=== PATIENT | male | born 1980 | race Caucasian/White ===

== ENCOUNTER 2023-05-12 11:53 | Outpatient (OUT) | payer OTHER, SELFPAY ==
[2023-05-12 12:36] LABS: Basophils Percent Auto 0.4 % (0.2-2.0); Eosinophils Absolute Auto 0.1 10^3/uL (0.0-0.7); Eosinophils Percent Auto 1.2 % (0.9-7.0); Hematocrit 42.6 % (42.0-54.0); Hemoglobin 14.5 g/dL (14.0-18.0); Immature Granulocytes Abs Auto 0.03 10^3/uL (0.00-0.03); Immature Granulocytes Pct Auto 0.4 % (0.0-0.5); Lymphocytes Absolute Auto 1.9 10^3/uL (1.2-3.8); Lymphocytes Percent Auto 25.7 % (20.5-60.0); Mean Corpuscular Hemoglobin 27.9 pg (25.9-34.0); Mean Corpuscular Volume 81.9 fL (80.0-94.0); Mean Platelet Volume 9.8 fL (9.5-13.5); Monocytes Absolute Auto 0.5 10^3/uL (0.3-0.8); Monocytes Percent Auto 6.1 % (1.7-12.0); Neutrophils Percent Auto 66.2 % (43.0-75.0); Platelet Count 259 10^3/uL (150-450); Red Cell Distribution Width 13.1 % (11.0-15.0); White Blood Count 7.6 10^3/uL (4.0-11.0)
[2023-05-12 13:03] LABS: Estimated Average Glucose 120 mg/dL; Glycohemoglobin A1C 5.8 % (4.5-6.2)
[2023-05-12 13:14] LABS: Alanine Aminotransferase 22 U/L (16-63); Albumin Globulin Ratio 1.3; Albumin Level 4.1 g/dL (3.4-5.0); Alkaline Phosphatase 72 U/L (46-116); Anion Gap 11.6; Aspartate Amino Transferase 10 U/L (15-37); Bilirubin Total 0.5 mg/dL (0.2-1.0); Calcium 8.7 mg/dL (8.5-10.1); Carbon Dioxide 26.2 mmol/L (21.0-32.0); Chloride 102 mmol/L (98-107); Chol HDL Ratio 5.5; Cholesterol 183 mg/dL (<=200); Estimated GFR (African America >60 (>=60); Estimated GFR (Non-African Ame >60 (>=60); Globulin 3.2 g/dL; Glucose 105 mg/dL (74-106); HDL Cholesterol 33 mg/dL (40-60); Potassium 3.8 mmol/L (3.5-5.1); Sodium 136 mmol/L (136-145); Thyroid Stimulating Hormone 1.827 uIU/mL (0.358-3.740); Total Protein 7.3 g/dL (6.4-8.2); Triglycerides 148 mg/dL (<=150); VLDL CHOLESTEROL 29.6 mg/dL
[2023-05-13 12:09] LABS: Insulin 9.4 uIU/mL (2.6-24.9)
== END 2023-05-12 11:54 | disposition home or self-care (01) ==
PROVIDERS: PCP Family Medicine; Visit Provider Family Medicine
DX: Z00.00 Encounter for general adult medical examination without abnormal findings (principal); E78.5 Hyperlipidemia, unspecified; R73.09 Other abnormal glucose
CPT/HCPCS: 36415; 80053; 80061; 83036; 83525; 84436; 84443; 84481; 85025

== ENCOUNTER 2023-09-14 13:46 | Outpatient (REF) | payer OTHER, SELFPAY ==
[2023-09-14 14:15] LABS: SARS-CoV-2 Ag POSITIVE (NEGATIVE)
[2023-09-14 14:16] LABS: Influenza Virus A Antigen Negative; Influenza Virus B Antigen Negative; Internal Control Within Normal Limits; Respiratory Syncytial Virus Not Detected (NOT DETECTE)
== END 2023-09-14 13:47 | disposition home or self-care (01) ==
LOC: LAB 13:46
PROVIDERS: PCP Family Medicine; Visit Provider Family Medicine
DX: J21.9 Acute bronchiolitis, unspecified (principal)
CPT/HCPCS: 87420; 87798; 87804; 87811

== ENCOUNTER 2025-06-21 17:08 | Outpatient (OUT) | payer OTHER, SELFPAY ==
[2025-06-21 08:04] LABS: Hematocrit 43.8 % (42.0-54.0); Hemoglobin 15.0 g/dL (14.0-18.0); Immature Granulocytes Abs Auto 0.02 10^3/uL (0.00-0.03); Immature Granulocytes Pct Auto 0.3 % (0.0-0.5); Lymphocytes Absolute Auto 2.0 10^3/uL (1.2-3.8); Mean Corpuscular HGB Conc 34.2 g/dL (29.9-35.2); Mean Corpuscular Hemoglobin 28.4 pg (25.9-34.0); Mean Corpuscular Volume 82.8 fL (80.0-94.0); Platelet Count 286 10^3/uL (150-450); Red Blood Count 5.29 10^6/uL (4.70-6.10); White Blood Count 7.3 10^3/uL (4.0-11.0)
[2025-06-21 10:25] LABS: Alanine Aminotransferase 28 U/L (16-63); Albumin Globulin Ratio 1.1; Albumin Level 3.9 g/dL (3.4-5.0); Alkaline Phosphatase 71 U/L (46-116); Anion Gap 14.3; Aspartate Amino Transferase 14 U/L (15-37); Blood Urea Nitrogen 17.0 mg/dL (7.0-18.0); Calcium 8.8 mg/dL (8.5-10.1); Carbon Dioxide 26.6 mmol/L (21.0-32.0); Chloride 104 mmol/L (98-107); Cholesterol 173 mg/dL (<=200); Estimated GFR (African America >60 (>=60 mL/min/1.73m^2); Estimated GFR (Non-African Ame >60 (>=60 mL/min/1.73m^2); Free T3 3.53 pg/mL (2.18-3.98); Globulin 3.5 g/dL; Glucose 123 mg/dL (74-106); HDL Cholesterol 30 mg/dL (40-60); Potassium 3.9 mmol/L (3.5-5.1); Sodium 141 mmol/L (136-145); Thyroid Stimulating Hormone 1.604 uIU/mL (0.358-3.740); Total Protein 7.4 g/dL (6.4-8.2); Triglycerides 100 mg/dL (<=150); VLDL CHOLESTEROL 20.0 mg/dL
--- OUTSIDE RECORDS SUMMARY | 2025-06-22 09:01 | XMS_ITS | Clinical Summary ---
Author Organization [facility] Address [address] [facility] [place] [address] Care Team Providers Care Quality Audit Representative Name Role Phone Unavailable Primary Care Provider Unavailabl e Social History Tobacco Use Types Packs/Day Years Used Date Smoking Tobacco: Never Assessed Sex and Gender Information Value Date Recorded Sex Assigned at Not on file Legal Sex Male 7:07 PM EDT Gender Identity Not on file Sexual Orientation Not on file Plan of Treatment Not on file [place] [facility] [place] Address: [facility] [id number] [place] [address]
--- OUTSIDE RECORDS SUMMARY | 2025-06-22 09:01 | XMS_ITS | Clinical Summary ---
Author Organization [employer] [facility] tem Address [facility] [id number] [address] [place] [address] Care Team Providers Care Student Accounts Coordinator Name Role Phone Berto Crowell MD Primary Care Provider +-2 Social History Tobacco Use Types Packs/Day Years [...] Not on file Insurance [employer] Care Teams Student Accounts Coordinator Relationship Specialty Start Date End Date Berto Crowell MD PCP - General 04/11/18
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
== END 2025-06-21 17:09 | disposition home or self-care (01) ==
LOC: LAB 06-22 09:00
PROVIDERS: PCP Family Medicine; Visit Provider Family Medicine
DX: K29.70 Gastritis, unspecified, without bleeding (principal); R10.11 Right upper quadrant pain; E78.5 Hyperlipidemia, unspecified; R73.09 Other abnormal glucose; Z12.12 Encounter for screening for malignant neoplasm of rectum; E03.9 Hypothyroidism, unspecified; I10 Essential (primary) hypertension; Z12.5 Encounter for screening for malignant neoplasm of prostate; R53.83 Other fatigue
CPT/HCPCS: 36415; 80053; 80061; 83036; 83525; 84436; 84443; 84481; 85025; G0103

== ENCOUNTER 2025-06-22 06:41 | Outpatient (OUT) | payer OTHER, SELFPAY ==
--- OUTSIDE RECORDS SUMMARY | 2025-06-22 06:43 | XMS_ITS | Clinical Summary ---
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
--- OUTSIDE RECORDS SUMMARY | 2025-06-22 06:43 | XMS_ITS | Clinical Summary ---
Author Organization [facility] tem Address [id number] [address] [place] [address] Care Team Providers Care [employer] H[employer] Consultant Name Role Phone Berto Crowell MD Primary Care Provider +-3 Social History Tobacco Use Types Packs/Day Years Used Date Smoking Tobacco: Never Assessed Childcare Answer Date Recorded Childcare Unknown 03/15/2019 Employment Answer Date Recorded Employment Unknown 03/15/2019 Purpose - Life Answer Date Recorded Purpose and direction in life Unknown Sex and Gender Information Value Date Recorded Sex Assigned at Not on file Legal Sex Male 11:50 AM EDT Gender Identity Not on file Sexual Orientation Not on file Plan of Treatment Health Maintenance Due Date Last Done Comments Depression Screening 1993 Tobacco Screening 1993 Adult BMI Screening 1999 DTaP,Tdap and Td Vaccines (1 - Tdap) 2000 Influenza Vaccine 06/04/2025 Medical Devices Not on file Insurance [employer] Care Teams [employer] Hcm Consultant Relationship Specialty Start Date End Date Berto Crowell MD PCP - General 04/11/18
--- OUTSIDE RECORDS SUMMARY | 2025-06-22 06:43 | XMS_ITS | CCD ---
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 Normal 13.0-17.0 [facility] Comment on above: Order Comment: No: D o not add to previous draw Performed By: #### 8 [id number] #### [facility] [address] [place] [address], [facility] MCH (RBC) [Entitic mass] 28.0 pg Normal 27.0-33.0 [facility] Comment on above: Order Comment: No: D o not add to previous draw Performed By: #### 8 [id number] #### [facility] [address] [place] [address], [facility] MCHC (RBC) [Mass/Vol] 33.2 g/dL Normal 32.0-35.0 [facility] Comment on above: Order Comment: No: D o not add to previous draw Performed By: #### 8 [id number] #### [facility] [address] [place] [id number], [facility] MCV (RBC) [Entitic vol] 84.5 fL Normal 82.0-98.0 [facility] Comment on above: Order Comment: No: D o not add to previous draw Performed By: #### 8 [id number] #### [facility] [address] [place] [address], [facility] Nucleated RBC/100 WBC (Bld) [Ratio] 0 % Normal 0-0 [facility] Comment on above: Order Comment: No: D o not add to previous draw Performed By: #### 8 [id number] #### [facility] [address] [place] [address], [place] PLAT CNT 242 10*3/uL Normal 150-400 [facility] Comment on above: Order Comment: No: D o not add to previous draw Performed By: #### 8 5499 #### [facility] [address] [place] [address], [facility] RBC (Bld) [#/Vol] 5.21 10*6/uL Normal 4.20-5.[address] [facility] Comment on above: Order Comment: No: D o not add to previous draw Performed By: #### 8 [id number] #### [facility] [address] [place] [address], [facility] WBC (Bld) [#/Vol] 14.28 10*3/uL High 4.00-10.60 [facility] Comment on above: Order Comment: No: D o not add to previous draw Performed By: #### 8 5499 #### [facility] [address] [facility] [place] [address], [facility] MAGNESIUM BLOODon 08-01-2021 Magnesium [Mass/Vol] 2.2 mg/dL Normal 1.9-2.7 [facility] Comment on above: Order Comment: No: D o not add to previous draw Performed By: #### 1 0070, 27257 #### [facility] [address] [facility] [place] [address], [facility] Operative Reporton 1 Operative Report MR#: [id number] I [facility] Pt. Name: Marilyn Mezad Room #: 3CD [id number] Discharge Date: Birthdate: 1980 OPERATIVE REPORT DATE OF SURGERY: 07/31/2021 SURGEON: Lizet Strickland MD PREOPERATIVE DIAGNOSES: 1. History of multiple partial small bowel obstruction. 2. Large incisional hernia. POSTOPERATIVE DIAGNOSIS: Multiple abdominal wall hernias. PROCEDURE: Extensive lysis of adhesions and laparotomy. Dr. Samaniego did the remainder of the hernia repair. ESTIMATED BLOOD LOSS: About 50 mL. INDICATION FOR PROCEDURE: This is an unfortunate 40-year-old male, who presented to me in the past for Dylan's procedure and perforated diverticulitis. He had his resection and then returned and had his takedown. During this time, he has gained a large amount of weight and has developed multiple abdominal wall hernias and he started having partial small bowel obstructions causing him to be admitted to the hospital multiple times. Decision was made to do an exploratory laparotomy and lysis of adhesions and then have Dr. Samaniego to repair his abdominal wall. DESCRIPTION OF PROCEDURE: Preoperatively, consent was obtained. The patient was brought in the operating room, placed in supine position. Under general anesthesia, abdomen was prepped and draped in the usual sterile fashion. The previous midline incision was opened inferiorly first to get under the large hernia sac. Once this was done, there were noted to be multiple loops of bowel stuck in the [place] cheeselike hernias of the abdominal wall. These were taken down with great care. This was a very extensive lysis of adhesions that was done, and after the abdominal wall was completely open and all of the hernia defects had the bowel removed out of the hernia cavities, the procedure was turned over to Dr. Samaniego for closure of the abdominal wall. Please see his dictation for details on his procedures. Electronically Signed by: Lizet Strickland MD 08/07/2021 12:34 P Lizet Strickland MD Date Dict: 07/31/2021/11:04 A/Lizet Strickland MD Date Trans: 07/31/2021 10:07 P/ivelisse [id number] cc: Coni Crowell M.D. [address], [facility] [id number] Normal [facility] POC GLUCOSE LABon 08-01-2021 Glucose [Mass/Vol] 107 mg/dL High 70-100 [facility] Comment on above: Performed By: #### 8 5499 #### [facility] [address] [place] [address], [place] Glucose [Mass/Vol] 103 mg/dL High 70-100 [facility] Comment on above: Performed By: #### 8 5499 #### [facility] [address] [place] [address], [place] Glucose [Mass/Vol] 117 mg/dL High 70-100 [facility] Comment on above: Performed By: #### 8 5499 #### [facility] [address] [place] [address], [place] POC GLUCOSE LABon 07-31-2021 Glucose [Mass/Vol] 142 mg/dL High 70-100 [facility] Comment on above: Performed By: #### 8 5499 #### [facility] [address] [place] [address], [place] Glucose [Mass/Vol] 111 mg/dL High 70-100 [facility] Comment on above: Performed By: #### 8 5499 #### [facility] [address] [place] [address], [place] Encounters Encounter Date Encounter Type Care Provider Facility Start: 10-29-2022 End: 10-29-[address] CONI CROWELL . Facility:[facility] Start: 09-25-2022 End: 09-25-[address] CONI CROWELL . Facility:[facility] Start: 04-01-2022 End: 04-01-[address] CONI CROWELL . Facility:[facility] Start: 07-31-2021 End: 08-04-2021 Evaluation and management of inpatient CONI CROWELL Facility:[facility] Payers Date Payer Category Payer Unknown [id number] 1980 Unknown [id number] 1980 Unknown [id number] 1980 Unknown [id number] 1958 Private Health Insurance [id number] Unknown Discharge summary note 08-05-2021 Note Date & Type Note Facility 08-05-2021 Note MR#: [id number] I [facility] Pt. Name: Gentry Meza Admitted: 07/31/2021 Discharged: 08/04/2021 Date of : 1980 Physician: Lizet Strickland MD DISCHARGE SUMMARY PRINCIPAL DIAGNOSIS: Status post hernia repair. PROCEDURES AND TREATMENT: Include the following, a 40-year-old male who was admitted postoperatively after a planned hernia repair by Dr. Samaniego and Dr. Strickland. He was admitted for observation, pain control, and to await return of bowel function. As the patient started passing gas, diet was advanced appropriately. Today, the patient was tolerating a soft diet without nausea or vomiting. He had [address] that both put out 50 mL in the past 24 hours. This was discussed with attending, who opted to keep ANAM drains in place until followup. Incision was also to be washed daily with soap and water, and have b.i.d. painting of Betadine and covered with dry dressing. He was to wear his abdominal binder at all times with the exception of when he was showering. All these discharge instructions were explained to the patient, who verbalized understanding, was agreeable with the plan. The patient was given a prescription for as needed pain medication and followup was scheduled in the clinic with Dr. Samaniego. The patient was then discharged in stable condition. The patient was seen and examined on day of discharge and this discharge summary is in conjunction with any daily progress note from the day of discharge. Electronically Signed by: Lizet Strickland MD 08/07/2021 12:34 P Lizet Strickland MD I personally saw this patient on the day of the encounter, performed the lawrence portion(s) of the service and participated in the management and confirm the resident's documentation. Please note there may be an additional personal documentation from me. Date Dict: 08/04/2021/06:36 P/Poppy Baker, SANITIZER Date Trans: 08/04/2021 11:48 P/mmo [id number] cc: Coni Crowell M.D. [place] [id number] [facility] [place] [id number] [facility] Summary Purpose Family History No Family History Records FoundNo Family History Records Found Advance Directives No Advanced Directives Records FoundNo Advanced Directives Records Found Additional Source Comments (unrecognized sect ion and content) No Status Records FoundNo Status Records Found INFORMATION SOURCE (unrecogn ized section and content) DATE CREATED AUTHOR 12/12/2021 [facility] DATE CREATED AUTHOR AUTHOR'S ORGANIZ ATION 02/03/2023 The [facility] FOR RECORDS PERTAINING TO PATIENTS WHO ARE OR HAVE BEEN ENROLLED IN A CHEMICAL DEPENDENCY/SUBSTANCEABUSE PROGRAM, SOME INFORMATION MAY BE OMITTED. This clinical summary was aggregated from multiple sources. Caution should be exercised in using it in the provision of clinical care. This summary normalizes information from multiple sources, and as a consequence, information in this document may materially change the coding, format and clinical context of patient data. In addition, data may be omitted in some cases. CLINICAL DECISIONS SHOULD BE BASED ON THE PRIMARY CLINICAL RECORDS. [facility] [employer] provides no warranty or guarantee of the accuracy or completeness of information in this document.
--- NOTE | 2025-06-22 06:44 | US_ITS ---
The [place] [id number] Patient Name: GENTRY MEZA MRN: [id number] date: 1980 Sex: M Assigned Patient Location: US Current Patient Location: US Accession/Order Number: [id number] Exam Date: 06/22/2025 07:00 Report Date: 06/22/2025 08:20 At the request of: CONI HANSEN MD Procedure: US abdomen complete COMPLETE ABDOMINAL ULTRASOUND CLINICAL HISTORY: Gastritis. Worsening epigastric and right upper abdominal pain COMPARISON: CT 06/24/2021 The gallbladder is physiologically distended without shadowing calculi, wall thickening or pericholecystic fluid. No intra- or extrahepatic biliary dilatation is evident. The common duct measures 3 mm. The liver is normal in echogenicity. No intrahepatic masses are seen. There is appropriate hepatopetal flow within the main portal vein. The hepatic veins are patent. The visualized portions of the pancreas show no significant sonographic abnormality. The spleen is normal in size and echogenicity measuring 12.5 cm in craniocaudal dimension. The right kidney measures 11.9 cm and the left 11.7 cm. There is no hydronephrosis or renal mass lesions. The abdominal aorta is normal caliber. The IVC is patent. No ascites is seen. US/US abdomen complete IMPRESSION: UNREMARKABLE ULTRASOUND ASSESSMENT OF THE ABDOMEN Impression dictated by: Aura Mason M.D. 06/22/2025 8:20 AM Dictation Location: [employer] Electronically authenticated by: [id number] Y Date: 06/22/2025 08:20
== END 2025-06-22 06:42 | disposition home or self-care (01) ==
LOC: US 06:42
PROVIDERS: PCP Family Medicine; Visit Provider Family Medicine
DX: K29.70 Gastritis, unspecified, without bleeding (principal); R10.11 Right upper quadrant pain
CPT/HCPCS: 76700